=== PATIENT | male | born 2000 | race Caucasian/White ===

== ENCOUNTER 2023-09-26 21:16 | Emergency (ER) | payer SELFPAY ==
[~2023-09-26] VITALS: Ht 241.3 cm; Wt 81.0 kg
[2023-09-26 21:16] VITALS: BP 125/76; PULSE 70; RESP 18; O2SAT 99
== END 2023-09-26 22:04 | disposition left against medical advice (07) ==
LOC: ER 21:16 → EDBD 21:16 → ER 22:04
DX: R10.30 Lower abdominal pain, unspecified (principal); R51.9 Headache, unspecified; R10.2 Pelvic and perineal pain; Z53.21 Procedure and treatment not carried out due to patient leaving prior to being seen by health care provider; V89.2XXA Person injured in unspecified motor-vehicle accident, traffic, initial encounter; Y93.89 Activity, other specified; Y92.410 Unspecified street and highway as the place of occurrence of the external cause; Y99.8 Other external cause status